=== PATIENT | female | born 1980 | race Native Hawaiian/Other Pacific Islander ===

== ENCOUNTER 2016-10-13 12:34 | Emergency (ER) | payer OTHER ==
[2016-10-13] MEDS ORDERED: Lactated Ringer's 1,000 ML IV ONE (13:06)
[2016-10-13 13:51] LABS: BASO # 0.1 K/uL (0.0-0.2); BASO % 0.6 % (0.0-2.0); EOS # 0.1 K/uL (0.0-0.7); EOS % 1.2 % (0.0-4.0); HEMATOCRIT 37.7 % (34.0-47.0); LYMPH # 1.2 K/uL (1.0-4.3); LYMPH % 9.9 % (20.0-40.0); MEAN CORPUSCULAR HEMOGLOBIN 30.5 pg (27.0-31.0); MEAN CORPUSCULAR HGB CONC 33.8 g/dL (33.0-37.0); MEAN PLATELET VOLUME 8.2 fL (7.2-11.7); MONO # 0.8 K/uL (0.0-0.8); MONO % 6.9 % (0.0-10.0); PLATELET COUNT 330 K/uL (130-400); RED CELL DISTRIBUTION WIDTH 13.7 % (11.5-14.5); URINE BILIRUBIN NEGATIVE (NEGATIVE); URINE BLOOD NEGATIVE (NEGATIVE); URINE COLOR Yellow (YELLOW); URINE GLUCOSE (UA) NORMAL (Normal); URINE KETONE NEGATIVE (NEGATIVE); URINE LEUKOCYTE ESTERASE NEG Leu/uL (Negative); URINE PROTEIN NEGATIVE (NEGATIVE); URINE UROBILINOGEN NORMAL mg/dL (0.2-1.0); WBC URINE < 1 /hpf (0-5); WHITE BLOOD COUNT 12.1 K/uL (4.8-10.8)
[2016-10-13 13:55] LABS: MEAN CELL VOLUME 90.2 fL (81.0-99.0)
[2016-10-13 13:58] LABS: CHLORIDE 102 mmol/L (98-107); POTASSIUM 3.6 mmol/L (3.6-5.2); SODIUM 135 mmol/L (132-148)
[2016-10-13 14:00] LABS: AST/SGOT 17 U/L (14-36); BILIRUBIN,TOTAL 0.3 mg/dL (0.2-1.3); CARBON DIOXIDE 24 mmol/L (22-30); GFR AFRICAN-AMERICAN > 60
[2016-10-13 14:01] LABS: ALB/GLOB RATIO 1.1 (1.0-2.1); ALKALINE PHOSPHATASE 55 U/L (38-126); ALT/SGPT 21 U/L (9-52); BLOOD UREA NITROGEN 7 mg/dL (7-17); CALCIUM 8.6 mg/dl (8.6-10.4); GLUCOSE,RANDOM 80 mg/dL (65-105); TOTAL PROTEIN 6.5 g/dL (6.3-8.3)
[2016-10-13 14:18] LABS: BASOPHIL 1 % (0-2); EOSINOPHIL 3 % (0-4); MYELOCYTE 1 % (0-0); NEUTROPHIL 70 % (50-75); TOTAL CELLS COUNTED 100
== END 2016-10-13 15:12 | disposition home or self-care (01) ==
LOC: C.EROB 12:34
DX: O21.0 Mild hyperemesis gravidarum (principal); Z3A.26 26 weeks gestation of pregnancy
CPT/HCPCS: 80053; 81001; 82948; 85025; 99283; J7120

== ENCOUNTER 2017-01-11 06:09 | Inpatient (IN) | payer MEDICAID, OTHER ==
--- NOTE | 2017-01-11 06:09 | OBHP ---
Datetime: 10/13/2016 13:47 IP Adm Impression: , intrauterine IP Admit Plan: Observation/Evaluation; Discharge home Admit Comment, IP Provider: 36 yo , LMP 03/18/16, revised NEO 01/17/17, per DOUGLAS adams 26w 2d c/o vomiting x 1, after eating her regualr egg whites breakfast sandwich; and just feeling "uncomfortabl e" x 2 days. Denies fever, headahces, visual changes, diarrhea or constipation. Reports mild shortnes s of breath and palpitations x " couple of days" denies chest pain. care: [facility], Dr. Wang. Denies any issues. (+) AFM; denies VB, LOF, Ctx. Last had sexual intercourse 6 weeeks ago . P OB: 2006, C/S, male 8lb 10oz, failure to progress, CH. 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 Denies STIs PMH: denies PSH: C/S NKDA Meds: PNV Soc Hx; Prev light tobacco user, 3-5 cig/da; last smoked 03/2016. Denies illicit drug or EtOH use. Lives with FOB and son Fam Hx: Mother alive. Father alive; both, with HTN P.E.: as above. Mildy obese in NAD. Awake, alert, oriented to time, person and place. Pleasant an d cooperative. Assessment: 36 yo P1, 26w 2d. Vomitting x 1; none since. Explained to patient, SOB and palpitation s are a normal response to the normal physiologic adaptation at this gestational age. VSS; patient is saturating at 100% on room air. No labored breathing. No tachycardia. FHR appropriate for gestationa l age. Clinically stable. Plan: 1) F.S. obtained and resulted 2) CBC, comp panel 3) U/A 4) IVFs 5) Observe Addendum: 1415 hours - patient feels better. - labs reviewed = all grossly within normal limits A/P: P1, 26w 2d, normal physioogic intravascular changes with physical manifestation as described by patient - wnl. Labs are wnl. Clinically stable. 1) Discharge home 2) Keep all scheduled appointments 3) reviewed S/S PTL Pelvic Type - PN: Not Done Extremities - PN: Normal Abdomen - PN: Normal Back - PN: Normal Breast - PN: Not Done Lungs - PN: Normal Heart - PN: Normal Thyroid - PN: Not Done Neurologic - PN: Normal HEENT - PN: Normal General - PN: Normal FHR - Baseline A Provider: 160 Contraction Comments Provider: none Comments, ACOG Physical Exam: Skin: warm, dry, intact Abdomen: Soft, non tender in all quadrants. Healed Pfannenstiel scar. Fundal height 26cm All other systems reviewed and are negative Gestation - Est Wks by US: 26w 2d EGA AdmitDate IP: 26.2 Vital Signs Provider: Reviewed Vital Signs Provider Details: F.S. 76 mg/dL at 1310 IP Chief Complaint: Maternal discomfort; Other Genitourinary Exam: Normal DTRs - PN: Not Done
[2017-01-11] MEDS ORDERED: cefOXitin IV 2 gm in Dextrose 2 GM/50 ML BAG IVPB ONE ×2 (06:31→07:29)
[2017-01-11] MEDS ORDERED: Lactated Ringer's 1,000 ML IV SCH ×2 (06:45→11:15)
--- NOTE | 2017-01-11 07:23 | OBADHP ---
Datetime: 01/11/2017 07:15 Admit Comment, IP Provider: 36 y/o @ 39.1 wks GA NEO 01/17/17 for scheuled repeat cesearen se ctin. pt dneies ctx, lfo, vb, +FM Ante: AMA , obesity, + quantiferon OB: FT CxS Failed IOL 40. 5 weeks , 8lbs 9 ounces MANAGER QUALITY IMPROVEMENT: denies, LMP 04/01/17, menarch age 11, 3-x 5 days, denies abnormal pap, fibrod, ovairan cyst, STI PMH: denies PSH: CxS NKDA MEDS: PNV, Ferrous sulfate SHX: negateive x 3 , hx of etoh socially and socially tobacco reports stopped suing since she foun d out she was FHX: Dad DM A/P 36 y/o @ 39.1 wks GA , AMA, previous cesearean section for repeat 1. admit to L+D 2. NPO 3. IVH 4. Cont toco and efm 5. Anesthesia/or aware 6. Pre op antibiocs 7. abdominal prep 8. cummins to graivty 9.scds Pelvic Type - PN: Adequate Extremities - PN: Normal Abdomen - PN: Normal Back - PN: Normal Breast - PN: Not Done Lungs - PN: Normal Heart - PN: Normal Thyroid - PN: Not Done Neurologic - PN: Normal HEENT - PN: Normal General - PN: Normal FHR - Baseline A Provider: 150 Membranes, Provider: Intact Contraction Comments Provider: irregular Gestation - Est Wks by US: 39.1 Vital Signs Provider: Reviewed; Within Normal Limits IP Chief Complaint: Uterine contractions NICHD Variability Prov Fetus A: Moderate 6-25bpm NICHD Accel Fetus A IP Provider: [id number] FHR Category Provider Fetus A: Category I NICHD Decel Fetus A IP Provider: None Dilatation, Provider: 1 Effacement, Provider: long Station, Provider: -3 Genitourinary Exam: Normal DTRs - PN: Normal EGA AdmitDate IP: 39.1 IP Adm Impression: Term, intrauterine IP Admit Plan: Admit to unit; Initiate Section protocol Datetime: 10/13/2016 13:47 Comments, ACOG Physical Exam: Skin: warm, dry, intact Abdomen: Soft, non tender in all quadrants. Healed Pfannenstiel scar. Fundal height 26cm All other systems reviewed and are negative Vital Signs Provider Details: F.S. 76 mg/dL at 1310
[2017-01-11 07:26] LABS: BASO % 0.5 % (0.0-2.0); EOS # 0.1 K/uL (0.0-0.7); HEMATOCRIT 39.5 % (34.0-47.0); LYMPH # 1.2 K/uL (1.0-4.3); LYMPH % 15.3 % (20.0-40.0); MEAN CELL VOLUME 88.3 fL (81.0-99.0); MEAN PLATELET VOLUME 8.5 fL (7.2-11.7); MONO # 0.6 K/uL (0.0-0.8); MONO % 7.4 % (0.0-10.0); RED CELL DISTRIBUTION WIDTH 13.4 % (11.5-14.5); WHITE BLOOD COUNT 7.7 K/uL (4.8-10.8)
[2017-01-11] MEDS ORDERED: Sodium Citrate/Citric Acid 15 ml Sol ONE (07:28)
[2017-01-11 07:43] LABS: CHLORIDE 105 mmol/L (98-107); POTASSIUM 3.7 mmol/L (3.6-5.2); SODIUM 135 mmol/L (132-148); URINE BILIRUBIN NEGATIVE (NEGATIVE); URINE BLOOD NEGATIVE (NEGATIVE); URINE COLOR STRAW (YELLOW); URINE GLUCOSE (UA) Normal (Normal); URINE KETONE NEGATIVE (NEGATIVE); URINE PROTEIN NEGATIVE (NEGATIVE); URINE UROBILINOGEN Normal mg/dL (0.2-1.0)
[2017-01-11 07:44] LABS: URINE BACTERIA RARE (<OCC); URINE LEUKOCYTE ESTERASE NEGATIVE Leu/uL (Negative); WBC URINE 1 /hpf (0-5)
[2017-01-11 07:46] LABS: ALB/GLOB RATIO 1.1 (1.0-2.1); ALKALINE PHOSPHATASE 120 U/L (38-126); AST/SGOT 21 U/L (14-36); BILIRUBIN,TOTAL 0.6 mg/dL (0.2-1.3); BLOOD UREA NITROGEN 8 mg/dL (7-17); CALCIUM 8.9 mg/dl (8.6-10.4); CARBON DIOXIDE 18 mmol/L (22-30); GFR AFRICAN-AMERICAN > 60; GLUCOSE,RANDOM 85 mg/dL (65-105); TOTAL PROTEIN 6.5 g/dL (6.3-8.3)
[2017-01-11 07:47] LABS: ALT/SGPT 22 U/L (9-52)
[2017-01-11] MEDS ORDERED: Sodium Citrate/Citric Acid 15 ml Sol PO ONE (08:17)
[2017-01-11] MEDS ORDERED: Morphine 1 mg/ml preservative-free Inj(Duramorph) ONE (08:32)
[2017-01-11] MEDS ORDERED: Oxytocin 10 Units/ml Inj ONE (09:52)
[2017-01-11] MEDS ORDERED: DiphenhydrAMINE 50 mg/ml Inj ONE (10:18)
[2017-01-11] MEDS ORDERED: Oxycodone/Acetaminophen 5/325 mg Tab PO PRN (11:10)
[2017-01-11] MEDS ORDERED: Naloxone 0.4 mg/ml Inj (Adult) IVP PRN (11:13)
[2017-01-11] MEDS ORDERED: DiphenhydrAMINE 50 mg/ml Inj IVP PRN (11:13)
--- NOTE | 2017-01-11 11:58 | PCM.SURG1 ---
Surgeon's Initial Post Op Note - Surgeon's Notes Surgeon: Leyda Smyth MD Braille Proofreader: Dr. Saavedra. Second Braille Proofreader: Gregoria Mckeon DO, PGY-1 Type of Anesthesia: Spinal Anesthesia Administered By: Kristopher Scruggs MD Pre-Operative Diagnosis: 39 weeks gestation, Previous section Operative Findings: Live female , ANGIE position, 's 9/9, weight 8lb 11oz. Normal uterus; and normal ovaries and fallopian tubes, bilaterally. Post-Operative Diagnosis: Same Operation Performed: Repeat transverse lower uterine segment Caesarean section Specimen/Specimens Removed: None Estimated Blood Loss: EBL {In ML}: 800 (U.O. 600 mL; IVFs 2000 ml - first litre 40 units Pitocin) Blood Products Given: N/A Drains Used: No Drains Post-Op Condition: Good Date of Surgery/Procedure: 01/11/17 Time of Surgery/Procedure: 11:05
[2017-01-11] MEDS: Simethicone 80 mg Chewtab PO SCH ×3 (14:00→21:44)
--- NOTE | 2017-01-11 22:32 | OP ---
PROCEDURE DATE: 01/11/2017 SURGEON: Leyda Smyth MD. CONTRACT PROGRAMMER: Dr. Saavedra. SECOND SCOURING TRAIN OPERATOR CHIEF: Gregoria Mckeon DO, PGY-1 ANESTHESIOLOGIST: Kristopher Scruggs MD. ANESTHESIA TYPE: Spinal. PREOPERATIVE DIAGNOSES: A 39 weeks' gestation, previous Caesarean section. POSTOPERATIVE DIAGNOSES: A 39 weeks' gestation, previous Caesarean section. OPERATIVE FINDINGS: Live female from the right occiput anterior position, weight 8 pounds 11 ounces. 's score 9 and 9 at 1 and 5 minutes respectively. Normal uterus; and normal ovaries, and fallopian tubes bilaterally. OPERATIONS PERFORMED: Repeat transverse lower uterine segment Caesarean section. SPECIMENS: None. ESTIMATED BLOOD LOSS: 800 mL. URINE OUTPUT: 600 mL. INTRAVENOUS FLUID: 2000 mL; the first 1000 mL had 40 units of Pitocin. BLOOD PRODUCTS GIVEN: None. COMPLICATIONS: None. PROCEDURE: The patient was taken to the operating room after having obtained informed consent for the anticipated procedure. This included a discussion of possible risks and complications including, but not limited to infection requiring continued antibiotics, hemorrhage requiring blood transfusion, repair of any damage to internal organs, possible Caesarean hysterectomy. The patient expressed an understanding. No questions were offered. Consents were signed, dated, witnessed, and placed in the chart. The patient received Mefoxin 2 g IV piggyback and a Richards catheter had been inserted under sterile conditions. The patient was then transferred to the operating room. She was placed on the operating room table in a sitting position where spinal anesthesia was administered without incident. She was immediately repositioned into a supine position and the abdomen was prepped. She was subsequently draped in the usual sterile fashion. After assuring an adequate level of anesthesia, a Pfannenstiel incision was made just below the previous Pfannenstiel incision using the scalpel. The incision was carried down to the subcutaneous tissue using the Bovie electrocautery. The fascia was identified, it was nicked in the midline and the incision was extended bilaterally also using the Bovie electrocautery. The rectus muscle was dissected off the overlying fascia. The rectus muscle was in the midline by sharp dissection and the parietal peritoneum was entered using 2 Khadijah clamps to tent it up and a cut made on the parietal peritoneum with Metzenbaum scissors. The vesicouterine reflection was identified and the bladder flap was created. A transverse incision was made on the lower uterine segment. Amniotomy was performed and copious amount of clear fluid was obtained. Atraumatic delivery of the infant with the findings as above then ensued. Once on the operative field, the 's mouth and nose were bulb suctioned as the umbilical cord was doubly clamped and cut. The infant was handed off the operative field to the butadiene converter utility operator in attendance. By manual extraction, the placenta was delivered. It was grossly intact and 3 vessels present in the cord. The uterus was exteriorized for closure. This was done in 2 layers using 0 Vicryl: the first layer was in a running interlocking fashion and the second layer was in a horizontal imbricating fashion. There was a hematoma noted in the inferior aspect of the incision on the left side. This was stabilized using a [id number] stitch and 2-0 Biosyn x 1. Examination of the posterior aspect of the uterus revealed the findings as above; the right ovary was covered by a thin film of very light adhesions. Copious irrigation was performed. The bladder flap was reapproximated using 2-0 chromic in a running fashion, and the uterus returned to the abdominal cavity. The paracolic gutters were cleared of all debris and hemostasis was assured. The parietal peritoneum was reapproximated using 2-0 chromic in a running fashion, the muscles was reapproximated in the midline using 2-0 chromic in a running fashion. The fascia was reapproximated using 1-0 Vicryl in a running fashion in two halves. Subcutaneous tissue was reapproximated using 0 plain catgut in a running fashion and the skin was reapproximated using 4-0 Biosyn. Steri-Strips were applied and a pressure dressing was applied. The patient was then repositioned in a frog-leg manner, bimanual massage was performed to express the uterus of any additional clots. The uterus was contracted and firm, approximately one fingerbreadth below the umbilicus. The patient tolerated the procedure well. She was transferred back to recovery room in stable condition. Infant had been initially evaluated in the Baby Nursery and was then joined to the mother in the recovery room. Mother and baby bonding and both in stable condition. Dr. Saavedra was present throughout the entire procedure. His presence was necessary for: 1) adequate visualization of the operative field at all times 2) the atraumatic and safe delivery of the as described above 3) assuring adequate hemostasis throughout. Leyda MD Haja CANDI
--- NOTE | 2017-01-11 22:43 | OBDS ---
DELIVERY PERSONNEL Delivery Doctor: Yris Smyth MD Scrub Nurse: REYES SINGH Purchase Order Checker: Enrique Marroquin RN Anesthesiologist: Yris Scruggs MD Resident: DR KIM MATERNAL INFORMATION Delivery Anesthesia: Spinal Estimated Blood Loss (ml): 800 Provider Comments: Repeat LTCS with atraumatic delivery of live female from ANGIE position, bi ght 8lb 11oz, 's 9/9 LABOR SUMMARY EDC: 01/17/2017 00:00 LABOR INFORMATION Group B Beta Strep: Negative STAGES OF LABOR Stage 3 hrs: 0 Stage 3 min: 1 CSECTION DELIVERY Primary Indication: Repeat Elective (Annotations: Data stored by [facility] on behalf of user) CSection Urgency: Elective CSection Incidence: Repeat Labor: N/A Elective: Elective CSection Incision: Lower Uterine Transverse Uterine Closure: Double-layer closure BABY A INFORMATION Delivery Date/Time: 01/11/2017 09:49 Method of Delivery: Born in Route : No : N/A Forceps: N/A Vacuum Extraction: N/A Shoulder Dystocia : No SHOULDER DYSTOCIA BABY A Delivery Date/Time: 01/11/2017 09:49 PRESENTATION/POSITION BABY A Presentation: Cephalic Cephalic Presentation: Vertex Vertex Position: Left Occipital Anterior Breech Presentation: N/A PLACENTA INFORMATION BABY A Placenta Delivery Time : 01/11/2017 09:50 Placenta Method of Delivery: Manual Removal Placenta Status: Delivered SCORES BABY A Heart Rate 1 min: >100 bpm Resp Effort 1 min: Good Cry Reflex Irritability 1 min: Cough or Sneeze or Pulls Away Muscle Tone 1 min: Active Motion Color 1 min: Body [place], Extremities Blue SCORE 1 MIN: 9 Heart Rate 5 min: >100 bpm Resp Effort 5 min: Good Cry Reflex Irritability 5 min: Cough or Sneeze or Pulls Away Muscle Tone 5 min: Active Motion Color 5 min: Body [place], Extremities Blue SCORE 5 MIN: 9 INFORMATION BABY A Gestational Age at Delivery: 39.1 Gestational Status: Term Infant Outcome : Liveborn Condition : Stable Infant Sex: Female IDENTIFICATION/MEDS BABY A ID Band Number: [id number] ID Band Location: Left Leg; Left Arm Sensor Applied: Yes Sensor Number: [id number] Vitamin K Given : Aquamephyton 1 mg IM Erythromycin Given: Given Both Eyes WEIGHT/LENGTH BABY A Infant Birthweight (gms): 3940 Weight (lb): 8 Weight (oz): 11 Infant Length Inches: 19.25 (Annotations: Data stored by N on behalf of user) Length cms: 48.9 CORD INFORMATION BABY A No. Cord Vessels: 3 Nuchal Cord : N/A Cord Blood Taken: Yes Suction: Mouth; Nose ASSESSMENT BABY A Complications: None Physical Findings at Delivery: Within Normal Limits Respirations: Appears Normal Stucco Laborer/ALS Called : Yes Infant Care By: DR CORRALES Transferred To: Remains with Mother
[2017-01-12 08:07] LABS: BASO % 0.3 % (0.0-2.0); EOS # 0.1 K/uL (0.0-0.7); EOS % 0.9 % (0.0-4.0); HEMATOCRIT 33.6 % (34.0-47.0); LYMPH # 0.8 K/uL (1.0-4.3); LYMPH % 6.6 % (20.0-40.0); MEAN CELL VOLUME 88.5 fL (81.0-99.0); MEAN CORPUSCULAR HEMOGLOBIN 30.2 pg (27.0-31.0); MEAN CORPUSCULAR HGB CONC 34.1 g/dL (33.0-37.0); MEAN PLATELET VOLUME 8.2 fL (7.2-11.7); MONO # 0.7 K/uL (0.0-0.8); MONO % 5.9 % (0.0-10.0); PLATELET COUNT 298 K/uL (130-400); RED CELL DISTRIBUTION WIDTH 13.4 % (11.5-14.5)
[2017-01-12 08:08] LABS: WHITE BLOOD COUNT 12.4 K/uL (4.8-10.8)
[2017-01-12] MEDS: Oxycodone/Acetaminophen 5/325 mg Tab PO PRN ×4 (08:12→21:33)
[2017-01-12 09:31] LABS: EOSINOPHIL 2 % (0-4); TOTAL CELLS COUNTED 100
[2017-01-12 09:32] LABS: NEUTROPHIL 83 % (50-75)
[2017-01-12] MEDS: Prenatal Multivit/Folic Acid/Iron Tab PO SCH (10:51)
[2017-01-12] MEDS: Simethicone 80 mg Chewtab PO SCH ×4 (10:51→21:28)
--- NOTE | 2017-01-12 15:06 | RAD ---
HISTORY: + Quantiferon Gold COMPARISON: No prior. TECHNIQUE: Chest PA and lateral FINDINGS: LUNGS: No active pulmonary disease evident her infiltrate or cavities. Lungs appear clear. A 3 mm vague nodular opacity left upper lobe laterally projects also over the inferior left 2nd anterior rib possibly a bone island. Conceivably a small pulmonary nodule is another consideration in granuloma. Review shows sub cm nodular hyperdensities either prominent vessels on end or central small calcified lana densities- lateral appearance is less appreciated on the frontal view. PLEURA: No significant pleural effusion identified. No pneumothorax apparent. CARDIOVASCULAR: Probable minimal cardiomegaly. No pulmonary venous congestion OSSEOUS STRUCTURES: No significant abnormalities. VISUALIZED UPPER ABDOMEN: Normal. OTHER FINDINGS: None. IMPRESSION: No active TB suggested per consolidation/ infiltrate or cavities. No suspect hilar or mediastinal lymphadenopathy suggested. Possible sub cm granulomas as above
--- NOTE | 2017-01-12 15:41 | OBPPN ---
Datetime: 01/12/2017 08:05 PP Pain Prov: Within normal limits PP Impression Prov: Normal progression PP Plan Prov: Continue present management PP Progress Note Prov: Patient seen and examined at bedside. Per nursing no acute events overnight. Patient is doing well, OOB to chair. Currently rates pain 8/10. Patient is tolerating diet but report s not having an appetitie. Lochia is moderate. Patient is breast feeding. Richards out this am. Hasnt no t urinated yet. Denies passing flatus or BM. Denies fevers, chills, nausea, vomiting, headaches, dizz iness, chest pain, shortness of breath, palpitations. VS: BP 105/69 HR 85 Temp 98.5 I/O: 4750/2200 Gen: AAOx3, NAD CV: RRR Lungs: CTA B/L Abd: soft, appropriately tender, fundus firm at umbilicus, hypoactive bowel sounds, dressing c/d/i Ext: no clubbing, cyanosis, edema; no calf tenderness Labs: 7.7>13.4/39.5<317 F/U am CBC O positive Rubella immune Assessment/Plan: 36 yo at 39w1d s/p RLTCD POD#1 1. Stable, afebrile 2. Pain control - percocet and motrin prn 3. F/U am CBC 4. Richards out, f/u voiding trial 5. Encourage ambulation and hydration/ Encourage ISS use 6. Advance diet as tolerated 7. Quantiferon Gold +, f/u CXR 8. Plan d/w attending Gregoria Mckeon DO, PGY-1 patient examined agree with resident exam, assessment and guzman Vital Signs Provider PP: Reviewed; Within Normal Limits
[2017-01-13] MEDS: Oxycodone/Acetaminophen 5/325 mg Tab PO PRN ×5 (02:40→20:51)
--- NOTE | 2017-01-13 08:18 | OBPPN ---
Datetime: 01/13/2017 08:15 PP Pain Prov: Within normal limits PP Nausea Prov: Denies PP Flatus Prov: Yes PP Abdomen/Uterus Prov: Normal PP Lochia Prov: Normal PP Extremities Prov: Normal PP C/S Incision Prov: Normal PP Comments Phys Exam Prov: fudus below umb exxt mild edema,no flavia incision clean and dry PP Impression Prov: Normal progression PP Plan Prov: Continue present management PP Progress Note Prov: pt was seen at bed side, pain under contol, no n/v, tolerating deit,voiding,m in loc, fl + pod#2 s/p c/s cont pain polo cont post op care encourage ambulTION Vital Signs Provider PP: Reviewed; Within Normal Limits
[2017-01-13] MEDS: Simethicone 80 mg Chewtab PO SCH ×4 (09:46→21:48)
[2017-01-13] MEDS: Prenatal Multivit/Folic Acid/Iron Tab PO SCH (09:47)
[2017-01-14] MEDS: Oxycodone/Acetaminophen 5/325 mg Tab PO PRN ×2 (04:24→08:34)
[2017-01-14 08:04] VITALS: BP 114/72; PULSE 84; RESP 18; TEMP 97; O2SAT 99
[2017-01-14] MEDS: Simethicone 80 mg Chewtab PO SCH (09:53)
[2017-01-14] MEDS: Prenatal Multivit/Folic Acid/Iron Tab PO SCH (09:53)
--- NOTE | 2017-01-14 09:53 | OBPPN ---
Datetime: 01/14/2017 08:06 PP Pain Prov: Within normal limits PP Nausea Prov: Denies PP Flatus Prov: Yes PP BM Prov: Yes PP Impression Prov: Normal progression PP Plan Prov: Discharge PP Progress Note Prov: Patient seen and examined at bedside. Per nursing, no acute events overnight. Patient is doing well, pain is controlled. Ambulating and tolerating diet. Lochia is mild. Urinating without difficulty. Passing flatus and BM. Breast and bottle feeding. Denies headaches, dizziness, c p, palpitations, sob, urinary symptoms VS: 100/65 83 97.3 Gen: AAOx3 CV: RRR Lungs: CTA B/L And: soft, appropriately tender, fundus firm below umbilicus, incision c/d/i with steristrips Ext: No c/c/e; no calf tenderness Labs: 7.7>13.4/39.5<317 12.4>11.5/33.6<298 O positive Rubella immune A/P: 36 yo at 39w3d s/p RLTCD POD#3 1. Stable, afebrile 2. Pain control - percocet and motrin prn 3. Encourage ambulation and hydration/ encourgae ISS use 4. Continue routine pp care 5. Quantiferon gold +, CXR no active TB suggested per consolidation/infiltrate or cavities (see fu ll report) 6. D/C home today, f/u with clinic in 1 week for incision check, percocet/motrin prn pain, pelvic rest x 6 weeks 7. Plan d/w attending Gregoira Mckeon DO PGY1 pt seen and examiend with residnet, doing well stable for dsicharge rto 1 week for staple removal precautisn givne Vital Signs Provider PP: Reviewed
--- NOTE | 2017-01-14 09:53 | OBDCSUM ---
Datetime: 01/14/2017 09:23 Discharged to, Provider: Home Follow up at, Provider: danni Disch Instr Activity: Normal activity Disch Instr Diet: Regular Discharge Instructions, Provider: Routine instructions given Discharge Diagnosis, Provider: Term Delivered Discharge Time: 01/14/2017 11:30 Follow up in weeks, Provider: 01-19-17 Disch Referrals: None Contraception discussed, Prov: Yes Disch Activity Restrictions: No lifting; Minimize stair-climbing; No sexual activity; Nothing in vag flakita - [place], tampons, douche Discharge Comment, Provider: if heaby bleeding, pain, feery chills, nause, vomiting, cp, sob, any co ncersn go to er and call md must follow up in [facility] for staple removal no later than 1 week Contraception after Delivery: Not Planning to Use Datetime: 10/13/2016 15:12 Disch Instr Activity: Normal activity; May Shower Discharge Instructions, Provider: Routine instructions given Discharge Diagnosis, Provider: Term Delivered Follow up in weeks, Provider: 1 week Disch Activity Restrictions: No exercising; No lifting; No driving; Minimize walking; Minimize stair -climbing; No sexual activity; Nothing in vagina - [place], tampons, douche Contraception after Delivery: Undecided
== END 2017-01-14 12:00 | disposition home or self-care (01) | DRG 766 ==
LOC: C.4D 06:09 → C.4M 13:53
PROVIDERS: ADMIT Obstetrics & Gynecology; ATTEND Obstetrics & Gynecology
PROC: 10D00Z1 Extraction of Products of Conception, Low, Open Approach (ICD-10-PCS; principal; 2017-01-11)
DX: O34.211 Maternal care for low transverse scar from previous cesarean delivery (principal); O99.214 Obesity complicating childbirth; Z3A.39 39 weeks gestation of pregnancy; Z37.0 Single live birth